=== PATIENT | female | born 1960 ===

== ENCOUNTER 2025-05-31 10:31 | Outpatient (RCR) | payer MEDICARE ==
[~2025-05-31 10:31] MED LIST: DIMETHYL FUMAR240 MG; ESTRADIOL1 MG PO; HYDROCODONE-AC473 M1; IBUPROFEN200 MG PO; IRON; LYRICA100 MG PO; METFORMIN HCL500 MG PO; MYRBETRIQ50 MG; NEXIUM40 MG PO; TOPAMAX50 MG PO; VASCEPA1 GM; VITAMIN D
== END 2025-06-28 ==
LOC: PT 10:31
PROVIDERS: ATTEND Internal Medicine Nephrology
DX: M47.816 Spondylosis without myelopathy or radiculopathy, lumbar region (principal)